=== PATIENT | male | born 1980 | race African-American/Black ===

== ENCOUNTER 2017-10-24 23:20 | Emergency (ER) | payer MEDICAID ==
[~2017-10-24] VITALS: Ht 170.2 cm; Wt 146.0 kg
[2017-10-25] MEDS ORDERED: KETOROLAC 60MG/2ML VIAL IM ONE (00:15)
[2017-10-25 01:30] VITALS: BP 134/89
== END 2017-10-25 01:54 | disposition home or self-care (01) ==
LOC: ER 23:20
DX: K08.89 Other specified disorders of teeth and supporting structures (principal); F17.200 Nicotine dependence, unspecified, uncomplicated; E66.9 Obesity, unspecified
CPT/HCPCS: 96372; 99283; J1885

== ENCOUNTER 2018-02-24 12:10 | Emergency (ER) | payer MEDICAID ==
[~2018-02-24] VITALS: Ht 167.6 cm; Wt 124.0 kg
[2018-02-24 12:23] VITALS: BP 152/95
[2018-02-24] MEDS ORDERED: IBUPROFEN 800MG TABLET PO ONE (12:30)
== END 2018-02-24 15:14 | disposition home or self-care (01) ==
LOC: ER 12:10
DX: L84 Corns and callosities (principal); M25.722 Osteophyte, left elbow
CPT/HCPCS: 73080; 73630; 99284

== ENCOUNTER 2019-07-08 22:17 | Inpatient (IN) | payer MEDICAID ==
[~2019-07-08] VITALS: Ht 172.7 cm; Wt 145.1 kg
[2019-07-08 23:38] LABS: CLARITY URINE CLEAR (CLEAR); COLOR URINE YELLOW (YELLOW); KETONES URINE NEGATIVE (NEGATIVE); LEUKOCYTE ESTERASE URINE NEGATIVE (NEGATIVE); NITRITE URINE NEGATIVE (NEGATIVE); OCCULT BLOOD URINE NEGATIVE (NEGATIVE); PH URINE 5.5 (4.5-8.0); PROTEIN URINE NEGATIVE (NEGATIVE); SPECIFIC GRAVITY URINE 1.017 (1.005-1.030)
[2019-07-09] MEDS ORDERED: ONDANSETRON HCL 4MG/2ML INJ IV STA (00:16)
[2019-07-09] MEDS ORDERED: SODIUM CHLORIDE 0.9% 1,000 ML IV ONE (00:16)
[2019-07-09] MEDS ORDERED: MORPHINE SULFATE 4 MG/ML CPJ (NOT FOR IM USE) IV STA (00:16)
[2019-07-09 00:42] LABS: CHLORIDE 103 mEq/L (98-107)
[2019-07-09 00:43] LABS: BASOPHILS % 0.7 % (0.0-2.0); HEMATOCRIT. 43.8 % (42.0-52.0); HEMOGLOBIN. 14.6 g/dL (14.0-18.0); LYMPHOCYTES % 19.3 % (20.0-50.0); MEAN CORPUSCULAR HEMOGLOBIN 27.5 pg (28.0-32.0); MEAN CORPUSCULAR VOLUME 82.5 fL (80.0-94.0); MEAN PLATELET VOLUME 9.9 fl (7.4-10.4); MONOCYTES % 10.4 % (2.0-8.0); NEUTROPHILS % 67.6 % (40.0-76.0); PLATELET 184 x1000/uL (130-400); RED CELL DISTRIBUTION WIDTH 14.6 % (11.6-14.6)
[2019-07-09 00:46] LABS: ETHANOL BLOOD < 10 mg/dL
[2019-07-09] MEDS ORDERED: PIPERACILLIN/TAZ 3.375G PREMIX 50 ML IV ONE (01:45)
[2019-07-09] MEDS ORDERED: KETOROLAC 30MG/ML VIAL IV ONE ×2 (01:45→08:00)
[2019-07-09] MEDS ORDERED: METRONIDAZOLE 500 MG PREMIX 100 ML IV ONE (01:45)
[2019-07-09] MEDS ORDERED: ONDANSETRON HCL 4MG/2ML INJ IV PRN (03:30)
[2019-07-09] MEDS ORDERED: MORPHINE SULFATE 2 MG/ML CPJ (NOT FOR IM USE) IV PRN ×2 (03:30)
[2019-07-09] MEDS ORDERED: ACETAMINOPHEN 325MG TABLET PO PRN (03:30)
[2019-07-09 06:06] LABS: BASOPHILS % 0.8 % (0.0-2.0); EOSINOPHILS % 2.6 % (0.0-5.0); HEMATOCRIT. 43.8 % (42.0-52.0); HEMOGLOBIN. 14.9 g/dL (14.0-18.0); LYMPHOCYTES % 20.9 % (20.0-50.0); MEAN CORPUSCULAR HEMOGLOBIN 27.9 pg (28.0-32.0); MEAN CORPUSCULAR VOLUME 82.2 fL (80.0-94.0); MEAN PLATELET VOLUME 9.5 fl (7.4-10.4); MONOCYTES % 10.4 % (2.0-8.0); NEUTROPHILS % 65.3 % (40.0-76.0); PLATELET 175 x1000/uL (130-400); RED BLOOD CELL COUNT 5.34 mill/uL (4.7-6.1); RED CELL DISTRIBUTION WIDTH 14.5 % (11.6-14.6)
[2019-07-09 06:13] LABS: CHLORIDE 107 mEq/L (98-107)
[2019-07-09] MEDS ORDERED: PIPERACILLIN/TAZOBACTAM 3.375 G in DEXTROSE 5% WATER 50 ML IV SCH (08:00)
[2019-07-09] MEDS: SODIUM CHLORIDE 0.9% 1,000 ML IV SCH ×2 (08:22→16:30)
[2019-07-09 09:41] LABS: *AMPHETAMINES SCREEN URINE NEGATIVE (NEGATIVE); *BARBITURATES SCREEN URINE NEGATIVE (NEGATIVE)
[2019-07-09 09:42] LABS: *BENZODIAZEPINES SCREEN URINE NEGATIVE (NEGATIVE); *COCAINE SCREEN URINE NEGATIVE (NEGATIVE); METHADONE URINE SCREEN NEGATIVE (NEGATIVE); OPIATES URINE SCREEN NEGATIVE (NEGATIVE)
[2019-07-09 09:43] LABS: CANNABINOID URINE SCREEN PRESUMTIVE POSITIVE (NEGATIVE); PHENCYCLIDINE URINE SCREEN NEGATIVE (NEGATIVE)
[2019-07-09] MEDS: HEPARIN 5000 UNITS/ML VIAL SUBCUT SCH ×2 (11:39→21:01)
[2019-07-09 12:00] VITALS: BP 146/103
[2019-07-09 12:40] VITALS: BP 167/114
[2019-07-09 13:20] VITALS: BP 146/103
[2019-07-09 16:00] VITALS: BP 156/100
[2019-07-09] MEDS: PIPERACILLIN/TAZOBACTAM 3.375 G in DEXT 5% WATER 100 ML IV SCH ×2 (16:32→21:59)
[2019-07-09] MEDS ORDERED: TRAMADOL 50MG TABLET PO PRN (18:00)
[2019-07-09 20:00] VITALS: BP 150/95
[2019-07-09] MEDS: CLONIDINE 0.1MG TABLET PO PRN (21:00)
[2019-07-09] MEDS: METRONIDAZOLE 500 MG PREMIX 100 ML IV SCH (21:01)
[2019-07-10] VITALS: BP 135/89
[2019-07-10 04:00] VITALS: BP 133/92
[2019-07-10] MEDS: PIPERACILLIN/TAZOBACTAM 3.375 G in DEXT 5% WATER 100 ML IV SCH ×2 (04:10→09:57)
[2019-07-10] MEDS: METRONIDAZOLE 500 MG PREMIX 100 ML IV SCH ×2 (05:37→14:00)
[2019-07-10 06:56] LABS: BASOPHILS % 0.5 % (0.0-2.0); EOSINOPHILS % 4.8 % (0.0-5.0); HEMATOCRIT. 45.5 % (42.0-52.0); LYMPHOCYTES % 23.8 % (20.0-50.0); MEAN CORPUSCULAR HEMOGLOBIN 27.3 pg (28.0-32.0); MEAN CORPUSCULAR VOLUME 82.8 fL (80.0-94.0); MEAN PLATELET VOLUME 10.1 fl (7.4-10.4); NEUTROPHILS % 61.9 % (40.0-76.0); PLATELET 185 x1000/uL (130-400); RED BLOOD CELL COUNT 5.49 mill/uL (4.7-6.1); RED CELL DISTRIBUTION WIDTH 14.7 % (11.6-14.6)
[2019-07-10 07:17] LABS: CHLORIDE 107 mEq/L (98-107)
[2019-07-10] MEDS ORDERED: OMEPRAZOLE 20MG CAPSULE EXTENDED RELEASE PO SCH (07:20)
[2019-07-10] MEDS: HEPARIN 5000 UNITS/ML VIAL SUBCUT SCH (09:57)
[2019-07-10] MEDS: CLONIDINE 0.1MG TABLET PO PRN (12:47)
[2019-07-10] MEDS ORDERED: METR500T MT (13:40)
[2019-07-10] MEDS ORDERED: LEVO500T2 MT (13:40)
[2019-07-10 14:27] VITALS: BP 139/106
== END 2019-07-10 15:10 | disposition home or self-care (01) | DRG 244 ==
LOC: ER 22:17 → 6EST 07-09 02:08 → EDBEDREQ 07-09 02:12 → ENRESERV 07-09 11:12
PROVIDERS: ADMIT Family Medicine Adult Medicine; ATTEND Family Medicine Adult Medicine
DX: K57.32 Diverticulitis of large intestine without perforation or abscess without bleeding (principal); N17.9 Acute kidney failure, unspecified; E44.1 Mild protein-calorie malnutrition; E66.01 Morbid (severe) obesity due to excess calories; F12.90 Cannabis use, unspecified, uncomplicated; F17.200 Nicotine dependence, unspecified, uncomplicated; Z71.3 Dietary counseling and surveillance; Z68.42 Body mass index [BMI] 45.0-49.9, adult
CPT/HCPCS: 36415; 74176; 76705; 80048; 80053; 80305; 80320; 81003; 83605; 85025; 99285; J1644; J1885; J2270; J2405; J2543; J3490; J7030; J7060; G0480

== ENCOUNTER 2020-04-16 23:00 | Emergency (ER) | payer MEDICAID, OTHER ==
[~2020-04-16] VITALS: Ht 172.7 cm; Wt 145.0 kg
[~2020-04-16 23:00] MED LIST: LEVO500T2 MT; METR500T MT
[2020-04-17] MEDS ORDERED: IBUPROFEN 800MG TABLET PO ONE (00:45)
[2020-04-17 00:54] VITALS: BP 176/115
== END 2020-04-17 01:40 | disposition home or self-care (01) ==
LOC: ER 23:00
DX: L84 Corns and callosities (principal); F12.10 Cannabis abuse, uncomplicated
CPT/HCPCS: 99282

== ENCOUNTER 2022-10-02 10:07 | Inpatient (IN) | payer MEDICAID, OTHER ==
[~2022-10-02] VITALS: Ht 172.7 cm; Wt 140.6 kg
[2022-10-02 11:32] LABS: BASOPHILS % 0.8 % (0.0-2.0); EOSINOPHILS % 3.1 % (0.0-5.0); HEMATOCRIT. 46.4 % (42.0-52.0); HEMOGLOBIN. 15.5 g/dL (14.0-18.0); LYMPHOCYTES % 19.2 % (20.0-50.0); MEAN CORPUSCULAR HEMOGLOBIN 27.6 pg (28.0-32.0); MEAN CORPUSCULAR VOLUME 82.7 fL (80.0-94.0); MEAN PLATELET VOLUME 9.7 fl (7.4-10.4); MONOCYTES % 8.2 % (2.0-8.0); NEUTROPHILS % 68.7 % (40.0-76.0); PLATELET 215 x1000/uL (130-400); RED BLOOD CELL COUNT 5.61 mill/uL (4.7-6.1); RED CELL DISTRIBUTION WIDTH 14.7 % (11.6-14.6)
[2022-10-02 11:34] LABS: CHLORIDE 110 mEq/L (98-107)
[2022-10-02] MEDS ORDERED: FUROSEMIDE 40MG/4ML VIAL IVP NR (12:30)
[2022-10-02] MEDS ORDERED: ASPIRIN 325MG EC TABLET PO ONE (13:15)
[2022-10-02] MEDS ORDERED: ONDANSETRON HCL 4MG/2ML INJ IV PRN (15:15)
[2022-10-02] MEDS ORDERED: IPRATROPIUM/ALBUTEROL 0.5-3(2.5)MG/3ML NEB HHN PRN (15:15)
[2022-10-02] MEDS ORDERED: ACETAMINOPHEN 325MG TABLET PO PRN (15:15)
[2022-10-02 17:37] VITALS: BP 188/118
[2022-10-02 17:59] VITALS: BP 188/118
[2022-10-02] MEDS: AMLODIPINE 10MG TABLET PO SCH (18:08)
[2022-10-02] MEDS: CLONIDINE 0.1MG TABLET PO PRN (19:19)
[2022-10-02 19:20] VITALS: BP 176/119
[2022-10-02 20:00] VITALS: BP 157/103
[2022-10-02] MEDS: HYDRALAZINE HCL 50MG TABLET PO SCH (21:49)
[2022-10-03] VITALS (7 sets, daily range): BP systolic 152–172; BP diastolic 100–118
[2022-10-03] MEDS: CLONIDINE 0.1MG TABLET PO PRN ×2 (01:25→20:08)
[2022-10-03] MEDS: DIPHENHYDRAMINE 50MG/ML VIAL IV PRN ×2 (01:39→22:58)
[2022-10-03 06:23] LABS: BASOPHILS % 0.5 % (0.0-2.0); EOSINOPHILS % 3.8 % (0.0-5.0); LYMPHOCYTES % 22.7 % (20.0-50.0); MEAN CORPUSCULAR VOLUME 82.4 fL (80.0-94.0); MEAN PLATELET VOLUME 10.3 fl (7.4-10.4); MONOCYTES % 8.4 % (2.0-8.0); NEUTROPHILS % 64.6 % (40.0-76.0); PLATELET 203 x1000/uL (130-400); RED BLOOD CELL COUNT 5.35 mill/uL (4.7-6.1); RED CELL DISTRIBUTION WIDTH 14.3 % (11.6-14.6)
[2022-10-03] MEDS: HYDRALAZINE HCL 50MG TABLET PO SCH ×2 (06:50→13:54)
[2022-10-03 07:45] LABS: CHLORIDE 109 mEq/L (98-107)
[2022-10-03] MEDS: AMLODIPINE 10MG TABLET PO SCH (09:21)
[2022-10-03] MEDS: FUROSEMIDE 40MG/4ML VIAL IV SCH (09:21)
[2022-10-03] MEDS: METOPROLOL TARTRATE 25MG TABLET PO SCH (20:08)
[2022-10-03] MEDS: HYDRALAZINE HCL 100MG TABLET PO SCH (21:20)
[2022-10-04] VITALS: BP 147/107
[2022-10-04 04:00] VITALS: BP 156/102
[2022-10-04] MEDS: HYDRALAZINE HCL 100MG TABLET PO SCH ×2 (05:10→14:09)
[2022-10-04 05:27] LABS: BASOPHILS % 0.6 % (0.0-2.0); EOSINOPHILS % 3.6 % (0.0-5.0); HEMATOCRIT. 46.2 % (42.0-52.0); HEMOGLOBIN. 15.5 g/dL (14.0-18.0); LYMPHOCYTES % 26.9 % (20.0-50.0); MEAN CORPUSCULAR HEMOGLOBIN 27.9 pg (28.0-32.0); MEAN CORPUSCULAR VOLUME 83.1 fL (80.0-94.0); MEAN PLATELET VOLUME 10.5 fl (7.4-10.4); NEUTROPHILS % 58.9 % (40.0-76.0); PLATELET 214 x1000/uL (130-400); RED BLOOD CELL COUNT 5.56 mill/uL (4.7-6.1); RED CELL DISTRIBUTION WIDTH 14.7 % (11.6-14.6)
[2022-10-04 08:29] VITALS: BP 164/109
[2022-10-04] MEDS: AMLODIPINE 10MG TABLET PO SCH (08:34)
[2022-10-04] MEDS: FUROSEMIDE 40MG/4ML VIAL IV SCH (08:34)
[2022-10-04] MEDS: METOPROLOL TARTRATE 25MG TABLET PO SCH (08:34)
[2022-10-04] MEDS ORDERED: METOPROLOL TARTRATE 25MG TABLET PO SCH (09:00)
[2022-10-04 12:00] VITALS: BP 127/88
[2022-10-04] MEDS ORDERED: AMLO10TA80 PO (14:19)
[2022-10-04] MEDS ORDERED: FURO40TA5 PO (14:19)
[2022-10-04] MEDS ORDERED: COR12 PO (14:19)
[2022-10-04] MEDS ORDERED: HYDR100T26 PO (14:19)
[2022-10-04 15:29] VITALS: BP 148/96
[2022-10-04 16:00] VITALS: BP 148/96
[2022-10-04] MEDS ORDERED: CARVEDILOL 12.5MG TABLET PO SCH (21:00)
[2022-10-05] MEDS ORDERED: FUROSEMIDE 40MG TABLET PO SCH (09:00)
== END 2022-10-04 18:05 | disposition home or self-care (01) | DRG 194 ==
LOC: ER 10:07 → EDBEDREQ 13:51 → EDBEDREQTM 13:51 → 7WST 15:03
PROVIDERS: ADMIT Internal Medicine; ATTEND Internal Medicine
DX: I11.0 Hypertensive heart disease with heart failure (principal); J96.00 Acute respiratory failure, unspecified whether with hypoxia or hypercapnia; N17.9 Acute kidney failure, unspecified; I42.9 Cardiomyopathy, unspecified; J91.8 Pleural effusion in other conditions classified elsewhere; I50.9 Heart failure, unspecified; K57.92 Diverticulitis of intestine, part unspecified, without perforation or abscess without bleeding; I16.1 Hypertensive emergency; E66.9 Obesity, unspecified; R79.89 Other specified abnormal findings of blood chemistry; F12.90 Cannabis use, unspecified, uncomplicated; F17.210 Nicotine dependence, cigarettes, uncomplicated; Z68.42 Body mass index [BMI] 45.0-49.9, adult; J84.9 Interstitial pulmonary disease, unspecified
CPT/HCPCS: 36415; 71045; 80048; 80053; 83735; 83880; 84484; 85025; 93005; 93306; 93970; 99285; J1200; J1940

== ENCOUNTER 2023-11-20 12:53 | Emergency (ER) | payer MEDICAID ==
[~2023-11-20] VITALS: Ht 175.3 cm; Wt 128.0 kg
[~2023-11-20 12:53] MED LIST changes: +AMLO10TA80 PO; +COR12 PO; +FURO40TA5 PO; +HYDR100T26 PO; -LEVO500T2 MT; -METR500T MT
[2023-11-20 13:04] VITALS: TEMP 98.5; O2SAT 97
[2023-11-20 16:21] VITALS: BP 137/90; PULSE 79; RESP 18
[2023-11-20] MEDS: IBUPROFEN 600MG TABLET PO ONE (16:21)
[2023-11-20] MEDS ORDERED: NAPR220C61 MT (16:32)
== END 2023-11-20 17:45 | disposition home or self-care (01) ==
LOC: ER 12:53
DX: S62.336A Displaced fracture of neck of fifth metacarpal bone, right hand, initial encounter for closed fracture (principal); G89.11 Acute pain due to trauma; W22.8XXA Striking against or struck by other objects, initial encounter; Y93.89 Activity, other specified; Y92.89 Other specified places as the place of occurrence of the external cause; Y99.8 Other external cause status
CPT/HCPCS: 29125; 73130; 99283

== ENCOUNTER 2024-08-01 08:33 | Emergency (ER) | payer MEDICAID ==
[~2024-08-01] VITALS: Ht 170.2 cm; Wt 138.0 kg
[~2024-08-01 08:33] MED LIST changes: +HYDR100T11 PO; -HYDR100T26 PO; +NAPR220C61 MT
[2024-08-01 08:37] VITALS: O2SAT 98
[2024-08-01 08:43] VITALS: TEMP 37.2; O2SAT 98
[2024-08-01 12:23] VITALS: BP 173/120; PULSE 89; RESP 18
[2024-08-01] MEDS: KETOROLAC 30MG/ML VIAL IM ONE (12:23)
[2024-08-01] MEDS ORDERED: CELE-116 MT (12:48)
== END 2024-08-01 13:42 | disposition home or self-care (01) ==
LOC: ER 08:33
DX: M16.11 Unilateral primary osteoarthritis, right hip (principal); I10 Essential (primary) hypertension; F10.90 Alcohol use, unspecified, uncomplicated; Z79.1 Long term (current) use of non-steroidal anti-inflammatories (NSAID); Z79.899 Other long term (current) drug therapy; Z90.89 Acquired absence of other organs; Y90.9 Presence of alcohol in blood, level not specified
CPT/HCPCS: 99283; 73502; 96372; J1885

== ENCOUNTER 2024-10-02 07:06 | Emergency (ER) | payer MEDICAID ==
[~2024-10-02] VITALS: Ht 172.7 cm; Wt 141.0 kg
[~2024-10-02 07:06] MED LIST changes: +CELE-116 MT
[2024-10-02 07:10] VITALS: O2SAT 96
[2024-10-02 07:17] VITALS: BP 166/120; PULSE 91; RESP 18; TEMP 37; O2SAT 98
[2024-10-02 08:06] LABS: BASOPHILS % 0.9 % (0.0-2.0); EOSINOPHILS % 3.1 % (0.0-5.0); HEMATOCRIT. 48.3 % (42.0-52.0); HEMOGLOBIN. 15.5 g/dL (14.0-18.0); LYMPHOCYTES % 15.1 % (20.0-50.0); MEAN CORPUSCULAR HEMOGLOBIN 26.9 pg (28.0-32.0); MEAN CORPUSCULAR VOLUME 83.9 fL (80.0-94.0); MONOCYTES % 6.8 % (2.0-8.0); NEUTROPHILS % 74.1 % (40.0-76.0); RED BLOOD CELL COUNT 5.76 mill/uL (4.7-6.1); RED CELL DISTRIBUTION WIDTH 15.2 % (11.6-14.6); WHITE BLOOD COUNT 7.3 x1000/uL (4.5-11.0)
[2024-10-02 08:16] LABS: CHLORIDE 106 mEq/L (98-107); DIFFERENTIAL COMMENT 1; POTASSIUM 4.7 mEq/L (3.5-5.1); SODIUM 142 mEq/L (136-145)
[2024-10-02 08:17] LABS: CALCIUM 9.4 mg/dL (8.7-10.4); CARBON DIOXIDE 29 mEq/L (21-32)
[2024-10-02 08:22] LABS: CREATININE 1.3 mg/dL (0.6-1.3); GLUCOSE 145 mg/dL (70-105); UREA NITROGEN BLOOD 13 mg/dL (9-23)
[2024-10-02 08:23] LABS: TROPONIN I HIGH SENSITIVITY 32 ng/L (3.0-53)
[2024-10-02 08:58] LABS: MEAN PLATELET VOLUME 10.6 fl (7.4-10.4)
[2024-10-02 08:59] LABS: PLATELET 161 x1000/uL (130-400)
[2024-10-02 09:52] LABS: TROPONIN I HIGH SENSITIVITY 23 ng/L (3.0-53)
[2024-10-02] MEDS ORDERED: HYDR100T11 PO (10:03)
[2024-10-02] MEDS ORDERED: AMLO10TA80 PO (10:03)
[2024-10-02] MEDS ORDERED: AZIT250T12 MT (10:03)
[2024-10-02] MEDS ORDERED: COR12 PO (10:03)
[2024-10-02] MEDS ORDERED: FURO40TA5 PO (10:03)
== END 2024-10-02 10:12 | disposition home or self-care (01) ==
LOC: ER 07:06
DX: J18.9 Pneumonia, unspecified organism (principal); I11.0 Hypertensive heart disease with heart failure; I50.9 Heart failure, unspecified; Z90.89 Acquired absence of other organs; Z79.1 Long term (current) use of non-steroidal anti-inflammatories (NSAID); Z79.899 Other long term (current) drug therapy; Z68.42 Body mass index [BMI] 45.0-49.9, adult
CPT/HCPCS: 36415; 71045; 80048; 84484; 85025; 93005; 99291